=== PATIENT | female | born 1970 | race Asian ===

== ENCOUNTER 2024-10-09 20:55 | Emergency (ER) | payer OTHER, SELFPAY ==
[2024-10-09 21:01] VITALS: BP 153/79; PULSE 96; RESP 16; TEMP 36.4; O2SAT 99; BMI 23.2
--- NOTE | 2024-10-10 02:06 | ED_ITS ---
HPI - General Adult General Chief complaint: Ear Problems Stated complaint: Ear pain Time Seen by Provider: 10/10/24 01:43 Source: patient, family (), RN notes reviewed and old records reviewed Mode of arrival: ambulatory Limitations: no limitations History of Present Illness ED Provider: Diana VORA narrative: 54-year-old female presents for evaluation of left-sided ear and facial pain. His symptoms if both of the pain started around the same time. She has some drainage and pus coming from the left ear. She has no pain or swelling behind the ear. She does have pain in front of the ear and to the left side of the lower jaw She reports that she has 1 tooth in the left lower side that has been bothering her for several days as well She reports that she has pain with opening her mouth but is able to open her mouth Her pain is a 7/10. She denies swimming or keeping her having her head under water Related Data Previous Rx's ?Medication ?Instructions ?Recorded amoxicillin 875 mg-potassium 1 tab PO Q12H #14 tabs 10/10/24 clavulanate 125 mg tablet ciprofloxacin HCl 0.2 % ear drops 0.25 ml otic (ears) Q12H 7 days 10/10/24 in a dropperette #14 ea Allergies Allergy/AdvReac Type Severity Reaction Status Date / Time No Known Allergies Allergy Verified 10/09/24 21:01 Review of Systems Constitutional: Constitutional: Denies body ache(s), Denies chills and Denies fever(s) ENT: Reports ear discharge, Reports otalgia, Reports facial pain and Reports mouth pain Cardiovascular: Cardiovascular: Denies chest pain and Denies dyspnea Respiratory: Respiratory: Denies cough and Denies dyspnea Gastrointestinal: Gastrointestinal: Denies abdominal pain, Denies nausea and Denies vomiting Musculoskeletal: Musculoskeletal: Denies back pain Integumentary/Breasts: Skin/Breast: Denies rash Physical Exam ED Vital Signs: Vital Signs - 24 hr 10/09/24 21:01 Temperature 97.6 F Pulse Rate 96 Respiratory Rate 16 Blood Pressure 153/79 H Pulse Oximetry 99 Oxygen Delivery Method Room Air BMI result Body Mass Index 23.2 Const General: healthy appearing, comfortable, no acute distress, alert and awake Nutritional Appearance: well nourished Orientation/consciousness: patient oriented x3 HENMT Other: External ear canal in the left is erythematous, edematous with greenish white purulent drainage. There was no mastoid tenderness or postauricular edema. TM appears intact and pearly white There is left lower facial edema. There is no trismus on exam. There was no Jose Miguel's angina. There is minimal gingival erythema to a left lower molar. No evidence of dental abscess or retropharyngeal abscess. No anterior neck edema Head: Yes normocephalic and Yes atraumatic Ears: TM's normal bilaterally, EAC's not normal and Abnormal EAC present otic discharge purulent Eyes Eyelids: Yes eyelids normal Conjunctivae: conjunctivae normal Sclerae: sclerae normal Corneas: corneas normal Pupils: Equal, round and reactive pupils present EOM: EOMs intact bilaterally Neck Neck: Yes full ROM Resp Effort & Inspection: normal respiratory effort, able to speak in complete sentences and not labored Skin General skin exam: elasticity normal Neuro General: patient oriented x3 Cranial nerves: Yes Equal, round and reactive pupils present and Yes Bilaterally intact EOM present Cognition (Neuro): normal cognition Extrem Other: Moving all extremities well without any obvious deformities Medical Decision Making Medical Decision Making MDM Narrative: 54-year-old female presents for evaluation of left ear pain and left facial pain. She appears to have acute left otitis externa on exam as well as a dental infection. There was no drainable abscess. We will treat the otitis externa with ciprofloxacin otic drops and Augmentin for the dental infection. This will also cover likely pathogens for otitis media although it does not appear that she has this. Differential Diagnosis Differential Diagnoses: The differential diagnosis associated with the presen tation includes Otitis externa Otitis media Mastoiditis Facial pain Gingivitis Dental caries Dental abscess Discharge Plan Discharge Clinical Impression: Otitis externa, Acute facial pain Patient Disposition: Home, Self-Care Instructions: Otitis Externa (ED), Mouth Care (ED) Additional Instructions: You have an ear infection of the ear canal called otitis externa Use the ciprofloxacin drops twice daily for 7 days Do not stick anything else in your ear including Q-tips You also appear to have a dental infection Take the Augmentin twice daily for 7 days You may apply warm compresses to the swollen area Follow-up with your primary doctor as well as your dentist Return for new or worsening symptoms Prescriptions: New ciprofloxacin HCl 0.2 % dropperette 0.25 ml otic (ears) Q12H 7 Days Qty: 14 0RF amoxicillin-pot clavulanate 875-125 mg tablet 1 tab PO Q12H Qty: 14 0RF Print Language: Japanese
[2024-10-10] MEDS: Amoxicillin/Potassium Clav 875 MG TABLET PO (02:16)
[2024-10-10] MEDS: Ibuprofen 600 MG TABLET PO (02:16)
[2024-10-10 02:40] VITALS: BP 153/79; PULSE 96; RESP 16; TEMP 36.4; O2SAT 99
== END 2024-10-10 02:40 | disposition home or self-care (01) ==
PROVIDERS: Emergency Provider Emergency Medicine; PCP Internal Medicine
DX: H60.92 Unspecified otitis externa, left ear (principal); H92.02 Otalgia, left ear; R51.9 Headache, unspecified
CPT/HCPCS: 99283